=== PATIENT | female | born 1980 | race Caucasian/White ===

== ENCOUNTER 2020-12-10 11:29 | Inpatient (IN) | payer MEDICAID ==
[~2020-12-10] VITALS: Ht 160 cm; Wt 102.5 kg
--- NOTE | 2020-12-10 11:39 | NUR ---
DR WILSON AT BEDSIDE AND INSTRUCTED TO CONTINUE REGULAR INSULIN DRIP AT RATE CURRENTY INFUSING ON ARRIVAL AND STARTED BY CAREFLIGHT: REGULAR INSULIN AT 8 UNITS/8 ML PER HOUR. WITNESSED BY HELMI 100 UNITS REGUAR INSULIN IN 100 ML NS
[2020-12-10] MEDS ORDERED: REGULAR INSULIN 100 UNITS in SODIUM CHLORIDE 0.9% 99 ML IV PRN (12:00)
[2020-12-10] MEDS ORDERED: ONDANSETRON 2MG/ML, 2ML IVPush ONE (12:00)
--- NOTE | 2020-12-10 12:00 | NUR ---
WILLIAM RUBIN IN PLACE
[2020-12-10] MEDS ORDERED: LACTATED RINGERS 1,000 ML IV ONE (12:02)
--- NOTE | 2020-12-10 12:15 | NUR ---
PER DR WILSON AWAITING INSULIN ORDERS FROM DR GOEL TO START PER [facility] PROTOCOL AND TO CONTINUE AT 8 UNITS PER HOUR UNTIL THEN. BEDSIDE ISTAT BLOOD GLUCOSE 372
[2020-12-10 12:17] LABS: FIO2 ROOM AIR %
[2020-12-10 12:18] LABS: INTERNATIONAL NORMALIZED RATIO 1.13 (0.93-1.1)
--- NOTE | 2020-12-10 12:18 | NUR ---
MD AT BEDSIDE WITH ULTRASOUND TO EVALUATE WHETHER PT IS FLUID OVERLOADED AND STATES THAT SHE IS DRY. VERBAL ORDER TO CHANGE IV FLUID RATE TO 999 PER HOUR FOR CURRENTLY INFUSING LITER. FLUID WARMER BEING UTILIZED
[2020-12-10 12:19] LABS: PH, VENOUS 6.771 pH (7.320-7.420)
[2020-12-10 12:22] LABS: CHLORIDE 111 mmol/L (98-107)
[2020-12-10] MEDS: REGULAR INSULIN 100 UNITS in SODIUM CHLORIDE 0.9% 99 ML IV PRN ×2 (12:24→18:30)
--- NOTE | 2020-12-10 12:24 | NUR ---
INSULIN DRIP THAT PT ARRIVED ON CHANGED TO INSULIN FROM [facility] AND INFUSING PER ORDERED AND NOTED ON JAN.
[2020-12-10] MEDS ORDERED: LABETALOL 5MG/ML, 20ML IVPush PRN (12:30)
[2020-12-10] MEDS ORDERED: POLYETHYLENE GLYCOL 17 GM PACKET PO PRN (12:30)
[2020-12-10] MEDS ORDERED: ONDANSETRON 2MG/ML, 2ML IV PRN ×2 (12:30→23:00)
[2020-12-10] MEDS ORDERED: SODIUM CHLORIDE 0.9% 1,000ML IVBOLUS ONE ×2 (12:30→21:00)
[2020-12-10] MEDS ORDERED: HEPARIN 5,000 UNITS/ML, 1ML ONE (12:30)
[2020-12-10] MEDS ORDERED: BISACODYL 10 MG SUPP PR PRN ×2 (12:30→23:00)
[2020-12-10] MEDS ORDERED: DOCUSATE 100 MG CAPSULE PO PRN (12:30)
[2020-12-10] MEDS ORDERED: ACETAMINOPHEN 325 MG TABLET PO PRN (12:30)
[2020-12-10] MEDS ORDERED: LACTATED RINGERS 1,000 ML IVBOLUS ONE (12:30)
[2020-12-10 12:31] LABS: MEAN CORPUSCULAR HEMOGLOBIN 22.3 pg (27.0-34.8); MEAN PLATELET VOLUME 8.1 fL (7.4-10.4); PLATELET COUNT 232 x10^3/uL (130-400); RED BLOOD COUNT 4.32 x10^6/uL (3.82-5.3); RED CELL DISTRIBUTION WIDTH 21.3 % (9.6-15.2)
[2020-12-10] MEDS: HEPARIN 5,000 UNITS/ML, 1ML SQ SCH ×2 (12:33→20:56)
[2020-12-10 12:41] LABS: ALANINE AMINOTRANSFERASE 43 U/L (12-78); ALBUMIN 4.1 g/dL (3.4-5.0); ALKALINE PHOSPHATASE 250 U/L (45-117); ANION GAP 21 mmol/L (5-15); BILIRUBIN,TOTAL 0.8 mg/dL (0.2-1.0); CALCIUM 8.9 mg/dL (8.5-10.1); CREATININE 1.47 mg/dL (0.55-1.02); SALICYLATE LEVEL 4.7 mg/dL (2.8-20.0); TOTAL PROTEIN 8.8 g/dL (6.4-8.2)
[2020-12-10 12:55] LABS: ACETONE, SERUM Large (80mg/dL) (Negative)
[2020-12-10 13:04] LABS: MICROSCOPIC INDICATED
[2020-12-10 13:07] LABS: HEMOGRAM NOTE RECHECKED
--- NOTE | 2020-12-10 13:09 | NUR ---
WILLIAM RUBIN REMAINS IN PLACE WITH NORMAL SALINE 1000 ML BOLUS INFUSING ON FLUID WARMER. PT PROVIDED ICE CHIPS AND TOLERATED WELL. PT PERIODICALY SITS UP IN [facility] AND STATES SHE NEEDS TO GO TO THE BATHROOM. CONTINUE TO EXPLAIN RIZO IN PLACE. PT CONFUSED BUT FOLLOWS COMMANDS.
[2020-12-10] MEDS ORDERED: LORazepam 2 MG/ML, 1ML ONE (13:18)
[2020-12-10 13:27] LABS: FREE T4 (FREE THYROXINE) 0.95 ng/dL (0.76-1.46)
[2020-12-10 13:27] LABS: MEAN CORPUSCULAR HGB CONC 26.8 g/dL (32.4-35.8)
[2020-12-10 13:28] LABS: MD YES
[2020-12-10] MEDS ORDERED: LORazepam 2 MG/ML, 1ML IVPush ONE (13:30)
[2020-12-10 13:36] LABS: BAND#(MANUAL) 1.83 x10^3/uL; BANDS%(MANUAL) 9 % (0-7); LYMPH#(MANUAL) 1.42 x10^3/uL (1-3.4); LYMPHS% (MANUAL) 7 % (22-44); METAMYELOCYTES% (MANUAL) 1 % (0-1); MONOS#(MANUAL) 1.22 x10^3/uL (0.3-2.7); MONOS% (MANUAL) 6 % (2-9); MYELOCYTES# (MANUAL) 0.41 x10^3/uL (0-0); MYELOCYTES% (MANUAL) 2 % (0-0); SEG#(MANUAL) 15.23 x10^3/uL (1.8-6.8); SEGS% (MANUAL) 75 % (42-75)
[2020-12-10 13:37] LABS: ANISOCYTOSIS 2+; ECHINOCYTES 1+; HYPOCHROMIA 1+; OVALOCYTES 1+
[2020-12-10 13:38] LABS: <PLATELET ESTIMATE> ADEQUATE; <PLT MORPHOLOGY> NORMAL PLT MORPH; TEAR DROPS 1+
[2020-12-10] MEDS ORDERED: ONDANSETRON 2MG/ML, 2ML ONE (13:38)
--- NOTE | 2020-12-10 13:46 | NUR ---
PT SEEPING, REATHING EVEN AND UNLABORED SHALLOW AND RAPID. WILLIAM REMAINS IN PLACE. WILL CONTINUE TO MONITOR
[2020-12-10] MEDS ORDERED: SUCCINYLCHOLINE 20 MG/ML, 10ML ONE (13:55)
[2020-12-10] MEDS ORDERED: PROPOFOL 10 MG/ML, 20ML ONE (13:55)
[2020-12-10] MEDS ORDERED: ETOMIDATE 20 MG/10 ML ONE (13:55)
[2020-12-10] MEDS ORDERED: PROPOFOL 10 MG/ML, 100ML IV ONE (13:55)
[2020-12-10] MEDS: SODIUM CHLORIDE 0.9% 1,000 ML IV SCH ×2 (14:05→20:38)
[2020-12-10 14:18] LABS: ANION GAP 21 mmol/L (5-15); CALCIUM 8.4 mg/dL (8.5-10.1); CHLORIDE 115 mmol/L (98-107); CREATININE 1.37 mg/dL (0.55-1.02)
[2020-12-10] MEDS ORDERED: SODIUM BICARB 8.4%, 50ML SYRINGE ONE (14:21)
--- NOTE | 2020-12-10 14:40 | NUR ---
TWO AMPS OF SODIUM BICARBONATE IVP GIVEN AT THE ORDER OF DR. GOEL.
--- NOTE | 2020-12-10 15:21 | NUR ---
RECTAL TEMP 36.1. WILLIAM TURNED OFF AT THIS TIME
--- NOTE | 2020-12-10 15:23 | NUR ---
PT HAS EYES CLOSED, OBTUNDED. SHALLOW RAPID BREATHING. WILL CONTINUE TO MONITOR
[2020-12-10] MEDS ORDERED: SODIUM BICARB 8.4%, 50ML SYRINGE IVPush ONE (15:30)
--- NOTE | 2020-12-10 17:13 | NUR ---
REPORT TO GONZALES LEDEZMA. PT TO BE TRANSPORTED TO FLOOR
[2020-12-10 17:56] VITALS: BP 92/45
[2020-12-10] MEDS: D5%-0.45NACL+KCL 20MEQ 1,000 ML IV SCH ×2 (18:53→20:38)
[2020-12-10 19:05] LABS: ALBUMIN 3.3 g/dL (3.4-5.0); ANION GAP 19 mmol/L (5-15); CALCIUM 8.5 mg/dL (8.5-10.1); CHLORIDE 119 mmol/L (98-107)
[2020-12-10 19:10] LABS: ALANINE AMINOTRANSFERASE 34 U/L (12-78); ALKALINE PHOSPHATASE 191 U/L (45-117); BILIRUBIN,TOTAL 0.8 mg/dL (0.2-1.0); CREATININE 1.34 mg/dL (0.55-1.02); TOTAL PROTEIN 6.9 g/dL (6.4-8.2)
[2020-12-10] MEDS ORDERED: NOREPINEPHRINE 32 MG in SODIUM CHLORIDE 0.9% 218 ML IV PRN (21:00)
[2020-12-10] MEDS: SODIUM BICARBONATE 8.4% 150 MEQ in DEXTROSE 5% 1,000 ML IV SCH (21:43)
[2020-12-10 21:48] LABS: MICROSCOPIC INDICATED
[2020-12-10 21:53] LABS: ANION GAP 15 mmol/L (5-15); CALCIUM 8.4 mg/dL (8.5-10.1); CHLORIDE 121 mmol/L (98-107); CREATININE 1.44 mg/dL (0.55-1.02)
[2020-12-10] MEDS: PROPOFOL 100 ML IV PRN (22:17)
[2020-12-10 22:22] LABS: AMPHETAMINE SCREEN, URINE Positive (Negative); BARBITURATE SCREEN, URINE Negative (Negative); BENZODIAZEPINE SCREEN, URINE Negative (Negative); CANNABINOID SCREEN, URINE Negative (Negative); COCAINE SCREEN, URINE Negative (Negative); METHADONE SCREEN, URINE Negative (Negative); OPIATE SCREEN, URINE Negative (Negative)
[2020-12-10] MEDS ORDERED: LACTULOSE 20 GM/30 ML UDC NG PRN (23:00)
[2020-12-10] MEDS ORDERED: DEXTROSE 50%, 50ML SYRINGE IVPush PRN (23:00)
[2020-12-10] MEDS ORDERED: MAGNESIUM SULFATE PMX 2GM/50ML 50 ML IVPB ONE (23:00)
[2020-12-10] MEDS ORDERED: POTASSIUM CHLORIDE 30 MEQ in SODIUM CHLORIDE 0.9% 100 ML IV ONE (23:00)
[2020-12-10] MEDS ORDERED: POTASSIUM CHLORIDE 30 MEQ in SODIUM CHLORIDE 0.9% 500 ML IV ONE (23:00)
[2020-12-10] MEDS ORDERED: POTASSIUM CHLORIDE PMX 100 ML IV ONE (23:00)
[2020-12-10] MEDS: ALBUTEROL/IPRATROPIUM 2.5MG/0.5MG, 3 ML INLINE SCH (23:00)
[2020-12-10] MEDS ORDERED: CALCIUM GLUCONATE IV ONE (23:00)
[2020-12-10] MEDS ORDERED: GLUCAGON 1 MG IM PRN (23:00)
[2020-12-10] MEDS ORDERED: POTASSIUM CHLORIDE 20 MEQ in SODIUM CHLORIDE 0.9% 250 ML IV ONE (23:00)
[2020-12-10] MEDS ORDERED: SODIUM PHOSPHATE IV ONE (23:00)
[2020-12-10] MEDS ORDERED: FENTANYL PF 100 MCG/2ML IVPush PRN (23:00)
[2020-12-10] MEDS ORDERED: SODIUM CHLORIDE 0.9% IV ONE ×2 (23:00)
[2020-12-10] MEDS ORDERED: MAGNESIUM SULFATE PMX 4GM/100M 100 ML IVPB ONE ×2 (23:00)
[2020-12-10] MEDS ORDERED: ACETAMINOPHEN 650 MG/20.3 ML UDC PO/NG PRN (23:00)
[2020-12-10] MEDS ORDERED: POTASSIUM CHLORIDE PMX 100 ML IVPB ONE (23:00)
[2020-12-10] MEDS ORDERED: DEXTROSE 4 GM TAB.CHEW PO PRN (23:00)
[2020-12-10] MEDS ORDERED: CALCIUM GLUCONATE 4.6 MEQ in SODIUM CHLORIDE 0.9% 90 ML IV ONE (23:00)
[2020-12-10] MEDS ORDERED: SENNA 176 MG/5 ML ORAL SOL NG PRN (23:00)
[2020-12-10] MEDS ORDERED: POTASSIUM CHLORIDE 20 MEQ TAB.ER.PRT PO SCH (23:00)
[2020-12-10] MEDS ORDERED: LIDOCAINE-MPF 1%, 2ML ENDO PRN (23:00)
[2020-12-10] MEDS ORDERED: SODIUM PHOSPHATE 40 MEQ in SODIUM CHLORIDE 0.9% 500 ML IV ONE (23:00)
[2020-12-10] MEDS ORDERED: POTASSIUM PHOSPHATE 22 MEQ in SODIUM CHLORIDE 0.9% 500 ML IV ONE (23:00)
[2020-12-10] MEDS ORDERED: POTASSIUM PHOSPHATE 44 MEQ in SODIUM CHLORIDE 0.9% 500 ML IV ONE (23:00)
[2020-12-10] MEDS ORDERED: POTASSIUM CHLORIDE 10 MEQ in SODIUM CHLORIDE 0.9% 250 ML IV ONE (23:00)
[2020-12-10] MEDS ORDERED: POTASSIUM CHLORIDE 20 MEQ TAB.ER.PRT PO ONE (23:00)
[2020-12-10] MEDS ORDERED: PHARMACY MAY ADJ FOR RENAL FX MC SCH (23:00)
[2020-12-10] MEDS ORDERED: SENNA/DOCUSATE TABLET NG PRN (23:00)
[2020-12-10] MEDS: FAMOTIDINE 20 MG/2 ML IV SCH (23:46)
[2020-12-10] MEDS: ENOXAPARIN 40 MG/0.4 ML SQ SCH (23:47)
[2020-12-11] MEDS: DEXMEDETOMIDINE 400 MCG in SODIUM CHLORIDE 0.9% 96 ML IV PRN ×2 (01:13→16:09)
[2020-12-11] MEDS: PROPOFOL 100 ML IV PRN ×3 (01:37→22:02)
[2020-12-11] MEDS ORDERED: OMNIPAQUE 350 MG/ML, 100ML BOTTLE ONE (02:05)
[2020-12-11 02:49] LABS: ANION GAP 14 mmol/L (5-15); CALCIUM 8.4 mg/dL (8.5-10.1); CHLORIDE 121 mmol/L (98-107)
[2020-12-11 02:50] LABS: CREATININE 1.49 mg/dL (0.55-1.02)
[2020-12-11] MEDS: NOREPINEPHRINE 32 MG in SODIUM CHLORIDE 0.9% 218 ML IV PRN (02:59)
[2020-12-11] MEDS: ALBUTEROL/IPRATROPIUM 2.5MG/0.5MG, 3 ML INLINE SCH ×4 (03:00→19:00)
[2020-12-11] MEDS: SODIUM BICARBONATE 8.4% 150 MEQ in DEXTROSE 5% 1,000 ML IV SCH ×2 (03:01→13:17)
[2020-12-11 04:14] VITALS: BP 94/46
[2020-12-11 05:32] LABS: BASOPHILS % (AUTO) 1 % (0-1); EOSINOPHILS % (AUTO) 0 % (1-7); LYMPHOCYTES % (AUTO) 5 % (22-44); MD NO; MEAN CORPUSCULAR HEMOGLOBIN 22.6 pg (27.0-34.8); MEAN CORPUSCULAR HGB CONC 30.3 g/dL (32.4-35.8); MEAN PLATELET VOLUME 7.9 fL (7.4-10.4); MONOCYTES % (AUTO) 9 % (2-9); NEUTROPHILS % (AUTO) 84 % (42-75); PLATELET COUNT 115 x10^3/uL (130-400); RED BLOOD COUNT 3.32 x10^6/uL (3.82-5.3); RED CELL DISTRIBUTION WIDTH 21.2 % (9.6-15.2)
[2020-12-11 05:37] LABS: ANION GAP 15 mmol/L (5-15); CALCIUM 8.7 mg/dL (8.5-10.1); CHLORIDE 121 mmol/L (98-107); CREATININE 1.52 mg/dL (0.55-1.02)
[2020-12-11] MEDS ORDERED: SODIUM PHOSPHATE 40 MMOL in SODIUM CHLORIDE 0.9% 500 ML IV ONE (07:00)
[2020-12-11] MEDS: REGULAR INSULIN 100 UNITS in SODIUM CHLORIDE 0.9% 99 ML IV PRN ×10 (07:47→17:58)
[2020-12-11] MEDS: THIAMINE 200 MG in SODIUM CHLORIDE 0.9% 50 ML IV SCH (08:00)
[2020-12-11] MEDS: POTASSIUM CHLORIDE 20 MEQ PACKET PO SCH ×3 (09:56→20:21)
[2020-12-11] MEDS: FAMOTIDINE 20 MG/2 ML IV SCH ×2 (09:56→23:08)
[2020-12-11] MEDS: PIPERACILLIN/TAZO/PMX 3.375GM 50 ML IV SCH ×3 (10:57→20:21)
[2020-12-11] MEDS: SODIUM CHLORIDE FLUSH 10ML SYR IVF SCH ×2 (10:57→20:21)
--- NOTE | 2020-12-11 12:42 | NUR ---
TF per RD recs: - do not recommend starting TF until levophed titrating at <5-8mcg/min; - when medically appropriate, recommend promote w/ end goal rate of 75mL/hr (ON propofol), 85mL/hr (OFF propofol). Addendum: 12/11/20 at [address] Amended: Links added.
[2020-12-11] MEDS: OXYcodone IR 5MG TABLET PO PRN (13:18)
[2020-12-11 22:39] LABS: ANION GAP 7 mmol/L (5-15); CALCIUM 8.4 mg/dL (8.5-10.1); CHLORIDE 123 mmol/L (98-107); CREATININE 1.41 mg/dL (0.55-1.02)
[2020-12-11] MEDS: ENOXAPARIN 40 MG/0.4 ML SQ SCH (23:08)
[2020-12-12] VITALS (8 sets, daily range): BP systolic 103–114; BP diastolic 54–74
[2020-12-12] MEDS: ALBUTEROL/IPRATROPIUM 2.5MG/0.5MG, 3 ML INLINE SCH ×4 (01:15→19:00)
[2020-12-12] MEDS: PROPOFOL 100 ML IV PRN ×5 (01:48→23:10)
[2020-12-12 02:17] LABS: BASOPHILS % (AUTO) 1 % (0-1); EOSINOPHILS % (AUTO) 2 % (1-7); LYMPHOCYTES % (AUTO) 15 % (22-44); MEAN CORPUSCULAR HEMOGLOBIN 22.3 pg (27.0-34.8); MEAN PLATELET VOLUME 8.3 fL (7.4-10.4); MONOCYTES % (AUTO) 16 % (2-9); NEUTROPHILS % (AUTO) 66 % (42-75); PLATELET COUNT 79 x10^3/uL (130-400); RED CELL DISTRIBUTION WIDTH 21.5 % (9.6-15.2)
[2020-12-12 02:25] LABS: ANION GAP 8 mmol/L (5-15); CALCIUM 8.2 mg/dL (8.5-10.1); CHLORIDE 123 mmol/L (98-107); CREATININE 1.31 mg/dL (0.55-1.02)
[2020-12-12 02:26] LABS: BILIRUBIN,TOTAL 0.7 mg/dL (0.2-1.0)
[2020-12-12] MEDS: PIPERACILLIN/TAZO/PMX 3.375GM 50 ML IV SCH ×4 (02:43→20:42)
[2020-12-12 02:50] LABS: ANISOCYTOSIS 2+; MD MORPH REVIEW ONLY
[2020-12-12 02:51] LABS: MICROCYTOSIS 2+
[2020-12-12 02:52] LABS: HYPOCHROMIA 1+; OVALOCYTES 1+; SCHISTOCYTES 1+
[2020-12-12 02:53] LABS: <PLATELET ESTIMATE> DECREASED; <PLT MORPHOLOGY> NORMAL PLT MORPH; TEAR DROPS 1+
[2020-12-12] MEDS: REGULAR INSULIN 100 UNITS in SODIUM CHLORIDE 0.9% 99 ML IV PRN ×9 (07:41→17:05)
[2020-12-12] MEDS: THIAMINE 200 MG in SODIUM CHLORIDE 0.9% 50 ML IV SCH (07:51)
[2020-12-12 08:11] LABS: CALCIUM 8.4 mg/dL (8.5-10.1); CHLORIDE 120 mmol/L (98-107)
[2020-12-12 08:15] LABS: ANION GAP 8 mmol/L (5-15); CREATININE 1.26 mg/dL (0.55-1.02)
[2020-12-12] MEDS ORDERED: MAGNESIUM SULFATE PMX 2GM/50ML 50 ML IVPB ONE (08:30)
[2020-12-12] MEDS: LACTULOSE 20 GM/30 ML UDC NG SCH ×3 (09:00→20:42)
[2020-12-12] MEDS ORDERED: POTASSIUM PHOSPHATE 44 MEQ in SODIUM CHLORIDE 0.9% 500 ML IV ONE (09:00)
[2020-12-12] MEDS: OXYcodone IR 5MG TABLET PO PRN ×2 (09:10→14:22)
[2020-12-12] MEDS: SODIUM CHLORIDE FLUSH 10ML SYR IVF SCH ×2 (09:19→20:42)
[2020-12-12] MEDS ORDERED: POTASSIUM CHLORIDE 40 MEQ in SODIUM CHLORIDE 0.9% 100 ML IV ONE (09:30)
[2020-12-12] MEDS: FAMOTIDINE 20 MG/2 ML IV SCH ×2 (10:56→22:35)
[2020-12-12 11:56] LABS: ANION GAP 7 mmol/L (5-15); CALCIUM 8.4 mg/dL (8.5-10.1); CHLORIDE 121 mmol/L (98-107); CREATININE 1.27 mg/dL (0.55-1.02)
[2020-12-12] MEDS: DEXMEDETOMIDINE 400 MCG in SODIUM CHLORIDE 0.9% 96 ML IV PRN (12:06)
[2020-12-12] MEDS: NOREPINEPHRINE 32 MG in SODIUM CHLORIDE 0.9% 218 ML IV PRN (17:04)
[2020-12-12] MEDS: ENOXAPARIN 40 MG/0.4 ML SQ SCH (22:35)
[2020-12-13] MEDS: ALBUTEROL/IPRATROPIUM 2.5MG/0.5MG, 3 ML INLINE SCH ×2 (01:15→07:45)
[2020-12-13] MEDS: PIPERACILLIN/TAZO/PMX 3.375GM 50 ML IV SCH ×4 (03:00→20:32)
[2020-12-13] MEDS: PROPOFOL 100 ML IV PRN ×2 (05:04→08:43)
[2020-12-13 05:53] LABS: MEAN CORPUSCULAR HEMOGLOBIN 23.8 pg (27.0-34.8); MEAN CORPUSCULAR HGB CONC 31.9 g/dL (32.4-35.8); MEAN PLATELET VOLUME 8.3 fL (7.4-10.4); PLATELET COUNT 68 x10^3/uL (130-400); RED BLOOD COUNT 3.35 x10^6/uL (3.82-5.3); RED CELL DISTRIBUTION WIDTH 21.4 % (9.6-15.2)
[2020-12-13 06:01] LABS: ANION GAP 9 mmol/L (5-15); CALCIUM 8.5 mg/dL (8.5-10.1); CHLORIDE 121 mmol/L (98-107); CREATININE 0.87 mg/dL (0.55-1.02)
[2020-12-13 06:02] LABS: BILIRUBIN,TOTAL 1.1 mg/dL (0.2-1.0); TRIGLYCERIDES 171 mg/dL (50-200)
[2020-12-13 06:47] LABS: MD YES
[2020-12-13 06:50] LABS: BAND#(MANUAL) 0.02 x10^3/uL; BANDS%(MANUAL) 1 % (0-7); BASOS#(MANUAL) 0.02 x10^3/uL (0-0.1); BASOS% (MANUAL) 1 % (0-1); MONOS#(MANUAL) 0.26 x10^3/uL (0.3-2.7); MONOS% (MANUAL) 15 % (2-9)
[2020-12-13 06:51] LABS: EOS#(MANUAL) 0.09 x10^3/uL (0.0-0.4); EOS% (MANUAL) 5 % (1-7); LYMPH#(MANUAL) 0.43 x10^3/uL (1-3.4); LYMPHS% (MANUAL) 25 % (22-44); SEGS% (MANUAL) 53 % (42-75)
[2020-12-13 06:52] LABS: ANISOCYTOSIS 2+; MICROCYTOSIS 2+
[2020-12-13 06:53] LABS: <PLATELET ESTIMATE> DECREASED; <PLT MORPHOLOGY> NORMAL PLT MORPH; HYPOCHROMIA 1+
[2020-12-13] MEDS ORDERED: POTASSIUM CHLORIDE 40 MEQ in SODIUM CHLORIDE 0.9% 500 ML IV ONE (07:00)
[2020-12-13] MEDS: THIAMINE 200 MG in SODIUM CHLORIDE 0.9% 50 ML IV SCH (07:26)
[2020-12-13] MEDS: SODIUM CHLORIDE FLUSH 10ML SYR IVF SCH ×2 (07:26→20:32)
[2020-12-13] MEDS: OXYcodone IR 5MG TABLET PO PRN ×2 (08:44→14:18)
[2020-12-13] MEDS: LACTULOSE 20 GM/30 ML UDC NG SCH ×3 (08:44→20:31)
[2020-12-13] MEDS: FAMOTIDINE 20 MG/2 ML IV SCH ×2 (10:55→22:52)
[2020-12-13] MEDS: DEXMEDETOMIDINE 400 MCG in SODIUM CHLORIDE 0.9% 96 ML IV PRN (11:30)
[2020-12-13] MEDS ORDERED: INSULIN GLARGINE 100 UNITS/ML, PEN ONE (17:57)
[2020-12-13] MEDS ORDERED: DEXTROSE 50%, 50ML SYRINGE IVPush PRN (18:00)
[2020-12-13] MEDS ORDERED: DEXTROSE 4 GM TAB.CHEW PO PRN (18:00)
[2020-12-13] MEDS ORDERED: GLUCAGON 1 MG IM PRN (18:00)
[2020-12-13] MEDS: INSULIN GLARGINE 100 UNITS/ML, PEN SQ-INSULIN SCH (18:02)
[2020-12-13] MEDS: INSULIN LISPRO 100 UNITS/ML, PEN SQ-INSULIN SCH (20:42)
[2020-12-13] MEDS: ENOXAPARIN 40 MG/0.4 ML SQ SCH (22:53)
[2020-12-14] MEDS: PIPERACILLIN/TAZO/PMX 3.375GM 50 ML IV SCH ×2 (02:31→09:19)
[2020-12-14 04:56] LABS: BASOPHILS % (AUTO) 1 % (0-1); EOSINOPHILS % (AUTO) 4 % (1-7); LYMPHOCYTES % (AUTO) 18 % (22-44); MEAN CORPUSCULAR HEMOGLOBIN 23.6 pg (27.0-34.8); MEAN CORPUSCULAR HGB CONC 31.3 g/dL (32.4-35.8); MEAN PLATELET VOLUME 8.1 fL (7.4-10.4); MONOCYTES % (AUTO) 15 % (2-9); NEUTROPHILS % (AUTO) 62 % (42-75); PLATELET COUNT 62 x10^3/uL (130-400); RED BLOOD COUNT 3.55 x10^6/uL (3.82-5.3); RED CELL DISTRIBUTION WIDTH 21.6 % (9.6-15.2)
[2020-12-14 05:00] LABS: MD NO
[2020-12-14 05:06] LABS: ANION GAP 11 mmol/L (5-15); CALCIUM 8.6 mg/dL (8.5-10.1); CHLORIDE 116 mmol/L (98-107); CREATININE 0.65 mg/dL (0.55-1.02)
[2020-12-14 05:07] LABS: BILIRUBIN,TOTAL 1.2 mg/dL (0.2-1.0)
[2020-12-14] MEDS: INSULIN LISPRO 100 UNITS/ML, PEN SQ-INSULIN SCH ×4 (06:12→20:14)
[2020-12-14] MEDS ORDERED: MAGNESIUM SULFATE PMX 2GM/50ML 50 ML IV ONE (06:30)
[2020-12-14] MEDS: THIAMINE 200 MG in SODIUM CHLORIDE 0.9% 50 ML IV SCH (08:36)
[2020-12-14] MEDS: LACTULOSE 20 GM/30 ML UDC NG SCH ×3 (08:42→20:13)
[2020-12-14] MEDS: MAGNESIUM OXIDE 400 MG TABLET PO SCH (08:42)
[2020-12-14] MEDS: POTASSIUM CHLORIDE 20 MEQ PACKET PO SCH ×3 (08:42→17:01)
[2020-12-14] MEDS: INSULIN GLARGINE 100 UNITS/ML, PEN SQ-INSULIN SCH ×2 (08:44→20:14)
[2020-12-14] MEDS: SODIUM CHLORIDE FLUSH 10ML SYR IVF SCH ×2 (08:45→20:14)
[2020-12-14] MEDS: FAMOTIDINE 20 MG/2 ML IV SCH (11:27)
[2020-12-14] MEDS: CEFTRIAXONE PMX 1GM/50ML 50 ML IV SCH (15:52)
[2020-12-14] MEDS ORDERED: ACETAMINOPHEN 325 MG TABLET PO PRN (16:30)
[2020-12-14 19:43] VITALS: BP 123/85
[2020-12-14] MEDS: FAMOTIDINE 20 MG TABLET PO SCH (20:13)
[2020-12-14] MEDS: BENZONATATE 100 MG CAPSULE PO PRN (22:58)
[2020-12-14] MEDS: ENOXAPARIN 40 MG/0.4 ML SQ SCH (22:58)
[2020-12-15 00:24] VITALS: BP 138/94
[2020-12-15 06:28] LABS: ALANINE AMINOTRANSFERASE 18 U/L (12-78); ALBUMIN 2.4 g/dL (3.4-5.0); ANION GAP 8 mmol/L (5-15); CALCIUM 8.6 mg/dL (8.5-10.1); CHLORIDE 112 mmol/L (98-107); CREATININE 0.46 mg/dL (0.55-1.02)
[2020-12-15 06:35] LABS: ALKALINE PHOSPHATASE 119 U/L (45-117); BILIRUBIN,TOTAL 0.6 mg/dL (0.2-1.0); TOTAL PROTEIN 5.8 g/dL (6.4-8.2)
[2020-12-15 07:16] VITALS: BP 134/86
[2020-12-15 07:23] LABS: MEAN CORPUSCULAR HEMOGLOBIN 23.6 pg (27.0-34.8); MEAN CORPUSCULAR HGB CONC 31.2 g/dL (32.4-35.8); PLATELET COUNT 67 x10^3/uL (130-400); RED BLOOD COUNT 3.69 x10^6/uL (3.82-5.3); RED CELL DISTRIBUTION WIDTH 22.3 % (9.6-15.2)
[2020-12-15 07:38] LABS: MD YES
[2020-12-15] MEDS: INSULIN LISPRO 100 UNITS/ML, PEN SQ-INSULIN SCH ×4 (07:51→20:46)
[2020-12-15 08:24] LABS: BAND#(MANUAL) 0.02 x10^3/uL; BANDS%(MANUAL) 1 % (0-7); EOS#(MANUAL) 0.03 x10^3/uL (0.0-0.4); EOS% (MANUAL) 2 % (1-7); LYMPH#(MANUAL) 0.62 x10^3/uL (1-3.4); LYMPHS% (MANUAL) 41 % (22-44); MONOS#(MANUAL) 0.23 x10^3/uL (0.3-2.7); MONOS% (MANUAL) 15 % (2-9); SEG#(MANUAL) 0.62 x10^3/uL (1.8-6.8); SEGS% (MANUAL) 41 % (42-75)
[2020-12-15 08:25] LABS: <PLATELET ESTIMATE> DECREASED; <PLT MORPHOLOGY> NORMAL PLT MORPH; ANISOCYTOSIS 2+; HYPOCHROMIA 1+; MICROCYTOSIS 2+
[2020-12-15] MEDS: FAMOTIDINE 20 MG TABLET PO SCH ×2 (09:59→20:11)
[2020-12-15] MEDS: MAGNESIUM OXIDE 400 MG TABLET PO SCH ×2 (09:59→20:11)
[2020-12-15] MEDS: LACTULOSE 20 GM/30 ML UDC NG SCH ×3 (09:59→20:12)
[2020-12-15] MEDS: SODIUM CHLORIDE FLUSH 10ML SYR IVF SCH ×2 (09:59→20:10)
[2020-12-15] MEDS: INSULIN GLARGINE 100 UNITS/ML, PEN SQ-INSULIN SCH ×2 (10:00→20:46)
[2020-12-15] MEDS: THIAMINE 200 MG in SODIUM CHLORIDE 0.9% 50 ML IV SCH (10:09)
[2020-12-15] MEDS: BENZONATATE 100 MG CAPSULE PO PRN ×2 (12:58→20:10)
[2020-12-15 13:02] VITALS: BP 154/96
[2020-12-15] MEDS ORDERED: MAGNESIUM SULFATE PMX 2GM/50ML 50 ML IV ONE (15:00)
[2020-12-15] MEDS: HEPARIN 5,000 UNITS/ML, 1ML SQ SCH (15:19)
[2020-12-15] MEDS: CEFTRIAXONE PMX 1GM/50ML 50 ML IV SCH (15:19)
[2020-12-15] MEDS: OXYcodone IR 5MG TABLET PO PRN ×2 (15:59→20:11)
[2020-12-15 19:46] VITALS: BP 133/85
[2020-12-16] MEDS: OXYcodone IR 5MG TABLET PO PRN ×5 (00:24→20:00)
[2020-12-16 00:25] VITALS: BP 128/85
[2020-12-16] MEDS ORDERED: GABA300C PO (01:30)
[2020-12-16] MEDS ORDERED: ONDA-89 PO (01:30)
[2020-12-16] MEDS ORDERED: GLIP2.5T3 PO (01:30)
[2020-12-16] MEDS ORDERED: THIA100T67 PO (01:30)
[2020-12-16] MEDS ORDERED: LACT10SO20 PO (01:30)
[2020-12-16] MEDS ORDERED: PANT40TA6 PO (01:30)
[2020-12-16] MEDS ORDERED: OLAN10TA9 PO (01:30)
[2020-12-16] MEDS ORDERED: PROM25TA10 PO (01:30)
[2020-12-16] MEDS ORDERED: LIPA1CAP PO (01:30)
[2020-12-16] MEDS ORDERED: MULT1TAB57 PO (01:30)
[2020-12-16] MEDS ORDERED: OMEP20CA20 PO (01:30)
[2020-12-16] MEDS ORDERED: PROM6.256 PO (01:30)
[2020-12-16] MEDS ORDERED: GABA800T5 PO (01:30)
[2020-12-16] MEDS ORDERED: OXYC5TAB2 PO ×2 (01:30)
[2020-12-16] MEDS ORDERED: ASCO500T8 PO (01:30)
[2020-12-16] MEDS ORDERED: FERR325T5 PO (01:30)
[2020-12-16] MEDS ORDERED: INSU100I13 SQ ×2 (01:30)
[2020-12-16] MEDS ORDERED: INSU100I11 SQ (01:30)
[2020-12-16] MEDS ORDERED: SUMA50TA4 PO (01:30)
[2020-12-16] MEDS ORDERED: PROP10TA51 PO (01:30)
[2020-12-16] MEDS ORDERED: PROP40TA PO (01:30)
[2020-12-16] MEDS ORDERED: MAGN400T50 PO (01:30)
[2020-12-16] MEDS ORDERED: FOLI-17 PO (01:30)
[2020-12-16] MEDS ORDERED: INSU100V5 SQ-INSULIN (01:30)
[2020-12-16] MEDS: HEPARIN 5,000 UNITS/ML, 1ML SQ SCH ×2 (03:33→15:48)
[2020-12-16] MEDS: INSULIN LISPRO 100 UNITS/ML, PEN SQ-INSULIN SCH ×4 (07:11→20:04)
[2020-12-16 07:43] VITALS: BP 128/80
[2020-12-16] MEDS: SODIUM CHLORIDE FLUSH 10ML SYR IVF SCH ×2 (10:01→20:01)
[2020-12-16] MEDS: MAGNESIUM OXIDE 400 MG TABLET PO SCH ×2 (10:01→20:00)
[2020-12-16] MEDS: THIAMINE 100MG TABLET PO SCH (10:01)
[2020-12-16] MEDS: LACTULOSE 20 GM/30 ML UDC NG SCH ×3 (10:01→20:01)
[2020-12-16] MEDS: INSULIN GLARGINE 100 UNITS/ML, PEN SQ-INSULIN SCH ×2 (10:02→20:13)
[2020-12-16] MEDS: FAMOTIDINE 20 MG TABLET PO SCH ×2 (10:02→20:00)
[2020-12-16 10:58] LABS: MEAN CORPUSCULAR HEMOGLOBIN 23.6 pg (27.0-34.8); MEAN CORPUSCULAR HGB CONC 31.3 g/dL (32.4-35.8); MEAN PLATELET VOLUME 8.2 fL (7.4-10.4); PLATELET COUNT 56 x10^3/uL (130-400); RED BLOOD COUNT 3.52 x10^6/uL (3.82-5.3); RED CELL DISTRIBUTION WIDTH 22.5 % (9.6-15.2)
[2020-12-16 11:13] LABS: ALANINE AMINOTRANSFERASE 16 U/L (12-78); ALBUMIN 2.6 g/dL (3.4-5.0); ANION GAP 8 mmol/L (5-15); CALCIUM 8.4 mg/dL (8.5-10.1); CHLORIDE 107 mmol/L (98-107); CREATININE 0.47 mg/dL (0.55-1.02)
[2020-12-16 11:14] LABS: ALKALINE PHOSPHATASE 115 U/L (45-117); BILIRUBIN,TOTAL 0.5 mg/dL (0.2-1.0); TOTAL PROTEIN 5.7 g/dL (6.4-8.2)
[2020-12-16 11:30] LABS: MD YES
[2020-12-16 11:35] LABS: SEG#(MANUAL) 0.74 x10^3/uL (1.8-6.8); SEGS% (MANUAL) 53 % (42-75)
[2020-12-16 11:36] LABS: BAND#(MANUAL) 0.01 x10^3/uL; BANDS%(MANUAL) 1 % (0-7); EOS#(MANUAL) 0.08 x10^3/uL (0.0-0.4); EOS% (MANUAL) 6 % (1-7); LYMPH#(MANUAL) 0.36 x10^3/uL (1-3.4); LYMPHS% (MANUAL) 26 % (22-44); METAMYELOCYTES# (MANUAL) 0.01 x10^3/uL (0-0); METAMYELOCYTES% (MANUAL) 1 % (0-1); MONOS#(MANUAL) 0.18 x10^3/uL (0.3-2.7); MONOS% (MANUAL) 13 % (2-9)
[2020-12-16 11:41] LABS: ANISOCYTOSIS 1+; HYPOCHROMIA 1+; MICROCYTOSIS 1+
[2020-12-16 11:42] LABS: <PLATELET ESTIMATE> DECREASED; <PLT MORPHOLOGY> NORMAL PLT MORPH
[2020-12-16 12:31] VITALS: BP 129/81
[2020-12-16] MEDS ORDERED: POTASSIUM CHLORIDE 20 MEQ TAB.ER.PRT PO ONE (18:30)
[2020-12-16] MEDS ORDERED: POTASSIUM CHLORIDE 40 MEQ in SODIUM CHLORIDE 0.9% 500 ML IV ONE (19:00)
[2020-12-16] MEDS ORDERED: [UNRECOGNIZED DRUG - OTHER] PO SCH (19:00)
[2020-12-16] MEDS ORDERED: PROTEASE PO SCH (19:00)
[2020-12-16] MEDS ORDERED: LIPASE PO SCH (19:00)
[2020-12-16] MEDS ORDERED: AMYLASE PO SCH (19:00)
[2020-12-16] MEDS ORDERED: MAGNESIUM SULFATE PMX 2GM/50ML 50 ML IV ONE (19:00)
[2020-12-16 19:35] VITALS: BP 133/87
[2020-12-16] MEDS: PROPRANOLOL 10 MG TABLET PO SCH (19:36)
[2020-12-16] MEDS: GABAPENTIN 400 MG CAPSULE PO SCH (20:00)
[2020-12-16] MEDS: OLANZAPINE 10 MG TABLET PO SCH (20:00)
[2020-12-17 01:14] VITALS: BP 93/61
[2020-12-17] MEDS: OXYcodone IR 5MG TABLET PO PRN ×5 (01:46→19:58)
[2020-12-17] MEDS: HEPARIN 5,000 UNITS/ML, 1ML SQ SCH (03:23)
[2020-12-17 03:25] VITALS: BP 110/68
[2020-12-17] MEDS: PROPRANOLOL 10 MG TABLET PO SCH ×3 (03:26→19:26)
[2020-12-17] MEDS: INSULIN LISPRO 100 UNITS/ML, PEN SQ-INSULIN SCH ×4 (07:24→19:58)
[2020-12-17] MEDS: PANTOPRAZOLE 40MG TABLET PO SCH (07:25)
[2020-12-17 07:52] VITALS: BP 96/61
[2020-12-17] MEDS: FOLIC ACID 1 MG TABLET PO SCH (08:20)
[2020-12-17] MEDS: GABAPENTIN 400 MG CAPSULE PO SCH ×3 (08:20→19:57)
[2020-12-17] MEDS: FAMOTIDINE 20 MG TABLET PO SCH ×2 (08:21→19:57)
[2020-12-17] MEDS: THIAMINE 100MG TABLET PO SCH (08:21)
[2020-12-17] MEDS: SODIUM CHLORIDE FLUSH 10ML SYR IVF SCH ×2 (08:21→19:59)
[2020-12-17] MEDS: MAGNESIUM OXIDE 400 MG TABLET PO SCH ×2 (08:21→19:58)
[2020-12-17] MEDS: PANCRELIPASE 5000 CAPSULE.DR PO SCH ×3 (08:21→16:49)
[2020-12-17] MEDS: LACTULOSE 20 GM/30 ML UDC NG SCH ×3 (08:22→19:57)
[2020-12-17] MEDS: INSULIN GLARGINE 100 UNITS/ML, PEN SQ-INSULIN SCH ×2 (09:11→19:59)
[2020-12-17 09:26] LABS: ANION GAP 8 mmol/L (5-15); CALCIUM 8.6 mg/dL (8.5-10.1); CHLORIDE 113 mmol/L (98-107)
[2020-12-17 09:29] LABS: CREATININE 0.58 mg/dL (0.55-1.02)
[2020-12-17 12:12] VITALS: BP 110/70
[2020-12-17 18:59] VITALS: BP 117/73
[2020-12-17] MEDS: OLANZAPINE 10 MG TABLET PO SCH (19:57)
[2020-12-18] MEDS: OXYcodone IR 5MG TABLET PO PRN ×6 (00:04→22:18)
[2020-12-18 01:01] VITALS: BP 116/76
[2020-12-18 04:04] VITALS: BP 114/77
[2020-12-18] MEDS: PROPRANOLOL 10 MG TABLET PO SCH ×2 (04:04→11:17)
[2020-12-18 07:24] VITALS: BP 115/78
[2020-12-18] MEDS: INSULIN GLARGINE 100 UNITS/ML, PEN SQ-INSULIN SCH ×2 (08:05→22:32)
[2020-12-18] MEDS: INSULIN LISPRO 100 UNITS/ML, PEN SQ-INSULIN SCH ×4 (08:11→22:34)
[2020-12-18] MEDS: LACTULOSE 20 GM/30 ML UDC NG SCH ×3 (08:11→22:16)
[2020-12-18] MEDS: PANTOPRAZOLE 40MG TABLET PO SCH (08:11)
[2020-12-18] MEDS: THIAMINE 100MG TABLET PO SCH (08:11)
[2020-12-18] MEDS: GABAPENTIN 400 MG CAPSULE PO SCH ×3 (08:11→22:17)
[2020-12-18] MEDS: MAGNESIUM OXIDE 400 MG TABLET PO SCH (08:11)
[2020-12-18] MEDS: PANCRELIPASE 5000 CAPSULE.DR PO SCH ×3 (08:11→16:11)
[2020-12-18] MEDS: FOLIC ACID 1 MG TABLET PO SCH (08:12)
[2020-12-18] MEDS: SODIUM CHLORIDE FLUSH 10ML SYR IVF SCH ×2 (08:12→21:00)
[2020-12-18] MEDS: FAMOTIDINE 20 MG TABLET PO SCH (08:12)
[2020-12-18 09:48] LABS: MEAN CORPUSCULAR HEMOGLOBIN 23.8 pg (27.0-34.8); MEAN CORPUSCULAR HGB CONC 30.8 g/dL (32.4-35.8); MEAN PLATELET VOLUME 8.5 fL (7.4-10.4); PLATELET COUNT 107 x10^3/uL (130-400); RED BLOOD COUNT 3.59 x10^6/uL (3.82-5.3); RED CELL DISTRIBUTION WIDTH 23.9 % (9.6-15.2)
[2020-12-18 09:54] LABS: MD YES
[2020-12-18 09:59] LABS: ANION GAP 5 mmol/L (5-15); CALCIUM 8.3 mg/dL (8.5-10.1); CHLORIDE 111 mmol/L (98-107); CREATININE 0.69 mg/dL (0.55-1.02)
[2020-12-18 10:08] LABS: BAND#(MANUAL) 0.02 x10^3/uL; BANDS%(MANUAL) 1 % (0-7); EOS#(MANUAL) 0.03 x10^3/uL (0.0-0.4); EOS% (MANUAL) 2 % (1-7); LYMPH#(MANUAL) 0.58 x10^3/uL (1-3.4); LYMPHS% (MANUAL) 36 % (22-44); MONOS#(MANUAL) 0.26 x10^3/uL (0.3-2.7); MONOS% (MANUAL) 16 % (2-9); MYELOCYTES# (MANUAL) 0.02 x10^3/uL (0-0); MYELOCYTES% (MANUAL) 1 % (0-0); SEGS% (MANUAL) 44 % (42-75)
[2020-12-18 10:09] LABS: ANISOCYTOSIS 1+; HYPOCHROMIA 1+; MICROCYTOSIS 1+; POLYCHROMASIA 1+; TEAR DROPS 1+
[2020-12-18 10:10] LABS: <PLATELET ESTIMATE> DECREASED; LARGE PLATELETS 1+
[2020-12-18] MEDS ORDERED: TBO-FILGRASTIM 300 MCG/0.5 ML SQ ONE (10:30)
[2020-12-18 12:35] VITALS: BP 119/77
[2020-12-18 18:47] VITALS: BP 131/81
[2020-12-18] MEDS: OLANZAPINE 10 MG TABLET PO SCH (22:19)
[2020-12-19] MEDS: PROPRANOLOL 10 MG TABLET PO SCH ×3 (00:06→11:23)
[2020-12-19] MEDS: FAMOTIDINE 20 MG TABLET PO SCH ×2 (00:06→08:53)
[2020-12-19] MEDS: MAGNESIUM OXIDE 400 MG TABLET PO SCH ×2 (00:06→08:53)
[2020-12-19 00:48] VITALS: BP 131/79
[2020-12-19] MEDS: OXYcodone IR 5MG TABLET PO PRN ×4 (04:47→17:39)
[2020-12-19 05:36] LABS: MEAN CORPUSCULAR HGB CONC 31.5 g/dL (32.4-35.8); PLATELET COUNT 104 x10^3/uL (130-400); RED CELL DISTRIBUTION WIDTH 24.9 % (9.6-15.2)
[2020-12-19 06:23] LABS: MD YES
[2020-12-19 06:26] LABS: <PLATELET ESTIMATE> DECREASED; ANISOCYTOSIS 1+; BAND#(MANUAL) 0.46 x10^3/uL; BANDS%(MANUAL) 6 % (0-7); EOS#(MANUAL) 0.08 x10^3/uL (0.0-0.4); EOS% (MANUAL) 1 % (1-7); HYPOCHROMIA 1+; LARGE PLATELETS 1+; LYMPH#(MANUAL) 1.14 x10^3/uL (1-3.4); LYMPHS% (MANUAL) 15 % (22-44); MICROCYTOSIS 1+; MONOS#(MANUAL) 0.15 x10^3/uL (0.3-2.7); MONOS% (MANUAL) 2 % (2-9); POLYCHROMASIA 1+; SEG#(MANUAL) 5.78 x10^3/uL (1.8-6.8); SEGS% (MANUAL) 76 % (42-75)
[2020-12-19 06:27] LABS: TEAR DROPS 1+
[2020-12-19 07:13] VITALS: BP 116/78
[2020-12-19] MEDS: PANTOPRAZOLE 40MG TABLET PO SCH (07:22)
[2020-12-19] MEDS: INSULIN LISPRO 100 UNITS/ML, PEN SQ-INSULIN SCH ×3 (07:22→16:06)
[2020-12-19] MEDS ORDERED: INSU100I13 SQ-INSULIN (08:50)
[2020-12-19] MEDS: PANCRELIPASE 5000 CAPSULE.DR PO SCH ×3 (08:52→16:06)
[2020-12-19] MEDS: LACTULOSE 20 GM/30 ML UDC NG SCH ×2 (08:52→16:06)
[2020-12-19] MEDS: FOLIC ACID 1 MG TABLET PO SCH (08:52)
[2020-12-19] MEDS: GABAPENTIN 400 MG CAPSULE PO SCH ×2 (08:53→16:06)
[2020-12-19] MEDS: THIAMINE 100MG TABLET PO SCH (08:53)
[2020-12-19] MEDS: INSULIN GLARGINE 100 UNITS/ML, PEN SQ-INSULIN SCH (08:58)
[2020-12-19] MEDS: SODIUM CHLORIDE FLUSH 10ML SYR IVF SCH (08:58)
[2020-12-19 12:32] VITALS: BP 114/70
== END 2020-12-19 18:17 | disposition home or self-care (01) | DRG 420 ==
LOC: ED 12:32 → EDIP 12:59 → CCU 17:33 → 3N 12-14 10:40
PROVIDERS: ADMIT Internal Medicine; ATTEND Internal Medicine
PROC: 0T9B70Z Drainage of Bladder with Drainage Device, Via Natural or Artificial Opening (ICD-10-PCS; 2020-12-10)
PROC: 5A1945Z Respiratory Ventilation, 24-96 Consecutive Hours (ICD-10-PCS; 2020-12-10)
PROC: 0BH17EZ Insertion of Endotracheal Airway into Trachea, Via Natural or Artificial Opening (ICD-10-PCS; 2020-12-10)
PROC: 02HV33Z Insertion of Infusion Device into Superior Vena Cava, Percutaneous Approach (ICD-10-PCS; 2020-12-10)
PROC: 04HH33Z Insertion of Infusion Device into Right External Iliac Artery, Percutaneous Approach (ICD-10-PCS; 2020-12-10)
PROC: 30233N1 Transfusion of Nonautologous Red Blood Cells into Peripheral Vein, Percutaneous Approach (ICD-10-PCS; principal; 2020-12-12)
DX: E11.11 Type 2 diabetes mellitus with ketoacidosis with coma (principal); J69.0 Pneumonitis due to inhalation of food and vomit; D50.9 Iron deficiency anemia, unspecified; D73.1 Hypersplenism; D61.818 Other pancytopenia; E78.1 Pure hyperglyceridemia; E83.39 Other disorders of phosphorus metabolism; E83.42 Hypomagnesemia; E87.0 Hyperosmolality and hypernatremia; B95.1 Streptococcus, group B, as the cause of diseases classified elsewhere; E87.1 Hypo-osmolality and hyponatremia; E87.6 Hypokalemia; F31.9 Bipolar disorder, unspecified; G43.909 Migraine, unspecified, not intractable, without status migrainosus; G93.41 Metabolic encephalopathy; I10 Essential (primary) hypertension; I27.20 Pulmonary hypertension, unspecified; I85.10 Secondary esophageal varices without bleeding; J96.00 Acute respiratory failure, unspecified whether with hypoxia or hypercapnia; K21.9 Gastro-esophageal reflux disease without esophagitis; K42.9 Umbilical hernia without obstruction or gangrene; K70.30 Alcoholic cirrhosis of liver without ascites; K72.90 Hepatic failure, unspecified without coma; K76.6 Portal hypertension; K85.20 Alcohol induced acute pancreatitis without necrosis or infection; K86.1 Other chronic pancreatitis; N17.0 Acute kidney failure with tubular necrosis; N28.89 Other specified disorders of kidney and ureter; N83.202 Unspecified ovarian cyst, left side; Z79.4 Long term (current) use of insulin; Z79.899 Other long term (current) drug therapy; Z83.3 Family history of diabetes mellitus; Z91.19 Patient's noncompliance with other medical treatment and regimen; F10.20 Alcohol dependence, uncomplicated; E11.40 Type 2 diabetes mellitus with diabetic neuropathy, unspecified; Z99.11 Dependence on respirator [ventilator] status; T68.XXXA Hypothermia, initial encounter; F15.20 Other stimulant dependence, uncomplicated; Z20.822 Contact with and (suspected) exposure to COVID-19
CPT/HCPCS: 36415; 36600; 51702; 71045; 71260; 74177; 76705; 76770; 76830; 80048; 80053; 80074; 80307; 80320; 80329; 81001; 82010; 82105; 82140; 82247; 82533; 82728; 82803; 82962; 83036; 83540; 83550; 83605; 83690; 83735; 83930; 84100; 84439; 84443; 84478; 85025; 85610; 86850; 86900; 86923; 87040; 87070; 87081; 87086; 87147; 87205; 87635; 93005; 94002; 94003; 94640; 96361; 96365; 96375; 99291; G0378; J0696; J1644; J1650; J1815; J2405; J2543; J2704; J3411; J3480; J7070; Q9967; G0480; J0330; J0610; J1447; J2060; J3475; J7030; J7040; J7050; J7120; P9016